=== PATIENT | female | born 1945 | race Caucasian/White ===

== ENCOUNTER 2017-03-17 14:58 | Emergency (ER) | payer OTHER ==
[~2017-03-17] VITALS: Ht 170.2 cm; Wt 113.1 kg
[~2017-03-17 14:58] MED LIST: Advair HFA 115/21 IH; BENICAR20 MG PO; CYCLOBENZAPRINE10 MG PO; DuoNeb IH; EXTRA STRENGTH500 M1 PO; HABITROL,NICODE21 MG TD; HYDROCHLOROTHIA25 MG PO; Humibid LA,Mucinex PO; Hydrodiuril,Oretic,E PO; LEVAQUIN750 MG PO; LIDOCAINE700 MG TD; LISINOPRIL40 MG PO; LOPRESSOR50 MG PO; Lasix PO; Levaquin PO; MAG-AL PLUS SUS30 ML PO; METOPROLOL TART25 MG PO; NITROSTAT0.4 MG SL; NORMODYNE,TRAN300 MG PO; NORVASC10 MG PO; Norvasc PO; PROTONIX40 MG PO; Remove Nicotine Patc TD; Spiriva IH; TRANSDERM-NITR0.4 MG TD; Tylenol Regular Stre PO; ZESTRIL40 MG PO; Zestril,Prinivil PO; [UNRECOGNIZED DRUG - OTHER]; [UNRECOGNIZED DRUG - OTHER] TD; predniSONE PO
[2017-03-17 16:40] LABS: EOSINOPHIL COUNT 0.1 K/uL (0-0.3); HEMATOCRIT 45.6 % (36.0-46.0); IMMATURE GRANULOCYTE (%) 0.4 % (0.0-0.7); LYMPHOCYTE COUNT 3.2 K/uL (1.0-2.8); MCH 30.4 PG (29.0-34.0); MCHC 33.1 G/DL (30.0-36.0); MCV 91.8 FL (83-99); MEAN PLAT.VOLUME 10.4 uM^3 (9.5-12.4); MONOCYTE (%) 11.3 % (3-12); MONOCYTE COUNT 0.9 K/uL (0-0.8); PLATELET COUNT 218 K/uL (156-360); RBC DIS.WIDTH-CV 12.9 % (11.8-14.6); RBC DIS.WIDTH-SD 43.8 % (39-53); RED BLOOD COUNT 4.97 M/uL (3.80-5.20); WHITE BLOOD COUNT 8.3 K/uL (4.1-10.2)
[2017-03-17 16:48] LABS: CHLORIDE 104 mEq/L (99-109); POTASSIUM 4.1 mEq/L (3.7-5.4); SODIUM 138 mEq/L (136-147)
[2017-03-17 16:50] LABS: GLUCOSE 106 mg/dL (70-99)
[2017-03-17 16:51] LABS: ANION GAP 12 MEQ/L (2-14)
[2017-03-17 16:53] LABS: GFR ESTIMATE (CALCULATED) > 59 mL/min/
[2017-03-17 16:54] LABS: UREA NITROGEN (BUN) 14 mg/dL (9-23)
[2017-03-17] MEDS ORDERED: PREDNISONE50 MG PO (18:52)
[2017-03-17] MEDS ORDERED: DUONEB 2.5-0.5 M3 ML AEROSOL (18:52)
[2017-03-17] MEDS ORDERED: HYCODAN SYRUP480 ML PO (18:52)
[2017-03-17] MEDS ORDERED: MELOXICAM7.5 MG PO (18:56)
[2017-03-17] MEDS ORDERED: NITROGLYCERIN1 EAC1 TD (18:57)
[2017-03-17] MEDS ORDERED: DOXYCYCLINE HY100 MG PO (19:27)
[2017-03-17 19:47] VITALS: BP 122/73
== END 2017-03-17 19:52 | disposition home or self-care (01) ==
LOC: EME 14:58
PROVIDERS: Emergency Medicine
DX: J44.1 Chronic obstructive pulmonary disease with (acute) exacerbation (principal); I10 Essential (primary) hypertension; F17.200 Nicotine dependence, unspecified, uncomplicated; Z88.0 Allergy status to penicillin
CPT/HCPCS: 71010; 80048; 85025; 94640; 99281; 99284

== ENCOUNTER 2017-04-12 18:08 | Emergency (ER) | payer OTHER ==
[~2017-04-12] VITALS: Ht 170.2 cm; Wt 93.7 kg
[~2017-04-12 18:08] MED LIST changes: +DOXYCYCLINE HY100 MG PO; +DUONEB 2.5-0.5 M3 ML AEROSOL; +HYCODAN SYRUP480 ML PO; +MELOXICAM7.5 MG PO; +NITROGLYCERIN1 EAC1 TD; +PREDNISONE50 MG PO
[2017-04-12 21:04] VITALS: BP 173/137
== END 2017-04-12 21:05 | disposition home or self-care (01) ==
LOC: RME 18:08 → EME 18:08 → RME 21:05
PROC: 3E0234Z Introduction of Serum, Toxoid and Vaccine into Muscle, Percutaneous Approach (ICD-10-PCS; principal; 2017-04-12)
DX: S51.812A Laceration without foreign body of left forearm, initial encounter (principal); Z23 Encounter for immunization; W22.8XXA Striking against or struck by other objects, initial encounter; Y92.512 Supermarket, store or market as the place of occurrence of the external cause; F17.200 Nicotine dependence, unspecified, uncomplicated; Z88.0 Allergy status to penicillin; Z88.8 Allergy status to other drugs, medicaments and biological substances
CPT/HCPCS: 99281; 99284